=== PATIENT | female | born 1965 | race Caucasian/White ===

== ENCOUNTER 2016-06-21 12:41 | Emergency (ER) | payer MEDICAID, OTHER ==
--- NOTE | 2016-06-21 12:45 | EDPHY ---
H & P HPI/ROS: CHIEF COMPLAINT: Fatigue. HISTORY OF PRESENT ILLNESS: The patient is a 50-year-old female with a history Afib/flutter with Pacemaker and transposition of the great vessels s/p who presents via EMS with fatigue. She underwent Mustard procedure at age 1 and 1/2 and balloon angioplasty of baffle stenosis in 1999. She reports that she was walking outside earlier today when she suddenly felt dizzy. She sat down on the ground and EMS was notified. On presentation she feels fatigued but has no other complaints. She denies chest pain, shortness of breath, fever, recent sickness, vomiting, diarrhea. Her pacemaker was last checked two weeks ago. She was cardioverted in February [address] Ramires. REVIEW OF SYSTEMS: A ten point review of systems was performed and is negative with the exception of the items mentioned in the HPI. Source: Patient Exam Limitations: No limitations - Medical/Surgical History Hx Asthma: No Hx Chronic Respiratory Disease: No Hx Diabetes: No Hx Cardiac Disease: Yes Hx Renal Disease: No Hx Cirrhosis: No Hx Alcoholism: No Hx HIV/AIDS: No Hx Splenectomy or Spleen Trauma: No Other PMH: Transposition of the great vessels. Pacemaker - Social History Smoking Status: Never smoked Alcohol Use: None Additional Social History: Nonsmoker. She is . - Physical Exam Exam: General Appearance: Alert. Vital signs reviewed. Heart rate 116. Eyes: Pupils equal and round, no conjunctival injection, no discharge. Anicteric. ENT, Mouth: Mucous membranes are moist, no oropharyngeal erythema or edema. Neck: No lymphadenopathy, supple. Respiratory: Lungs are clear to auscultation; no wheezes, rales, or rhonchi. Cardiovascular: Tachycardic. Murmur, rub, or gallop. Gastrointestinal: Abdomen is soft and nontender, no masses or organomegaly, bowel sounds normal. Skin: Warm and dry, no rashes on exposed skin, normal color. Back: Nontender to palpation over the thoracolumbar spine. No CVAT. Extremities: No lower extremity edema, no calf tenderness or swelling. Neurological: Alert and oriented. Moving all four extremities easily and equally. Psychiatric: Normal affect. Constitutional: Initial Vital Signs Temperature (C) 36.7 C 06/21/16 12:41 Heart Rate 115 H 06/21/16 12:41 Respiratory Rate 16 06/21/16 12:41 Blood Pressure 102/77 06/21/16 12:41 O2 Sat (%) 95 06/21/16 12:41 O2 Delivery Mode Room Air Allergies/Adverse Reactions: No Known Allergies Allergy (Unverified 08/29/11 10:27) Home Medications: Medication Instructions Recorded Aspirin [Aspirin 81mg (*)] 81 mg PO DAILY 06/22/16 Metoprolol Tartrate [Lopressor 25 25 mg PO BID #60 tab 06/23/16 mg (*)] Medical Decision Making - Diagnostics EKG Interpretation: The 12 lead EKG was interpreted by myself. See hard copy and/or "tracemaster" electronic copy for interpretation. Sinus tachycardia. VPC, right bundle branch block. ED Course/Re-evaluation: 50-year-old female with an extensive cardiac history including transposition of the great vessels and Pacemaker presents after an episode of dizziness just prior to arrival. On presentation she is fatigued but without chest pain or shortness of breath. An IV was established and labs ordered. EKG, chest x-ray obtained. I independently reviewed the patient's chest x-ray in the PACS system. My interpretation: no acute cardiopulmonary disease. Pacemaker wires intact. 1408: Reassessed patient. 1419: Consulted with Dr. Clements, cardiology. He is familiar with her. We reviewed previous blood pressure readings. Latest blood pressure here was 98/ 79. He would like her to stop taking her lisinopril. 1 week ago she stopped taking Multaq; he does not want her to resume that medication. 1435: Reassessed patient. HR around 110, sinus, paced. She does not feel lightheaded. Discussed the plan with her. She is comfortable being discharged. Differential Diagnosis: Chest pain including but not limited to myocardial ischemia, pulmonary embolus, chest wall pain, pleural inflammation and pulmonary infectious causes. Syncope including but not limited to vasovagal syncope, arrhythmia, dehydration , and blood loss. - Data Points Laboratory Results: Laboratory Results 06/21/16 Unknown 06/21/16 13:16 Departure - Departure Disposition: Home, Routine, Self-Care Clinical Impression: Tachycardia Atrial fibrillation Qualifiers: Atrial fibrillation type: unspecified Qualified Code(s): I48.91 - Unspecified atrial fibrillation Condition: Good Instructions: A-fib (Atrial Fibrillation) (ED), Tachycardia (ED) Additional Instructions: Discontinue use of your Lisinopril. Keep your appointment on Friday in [place] as scheduled. Return for any serious worsening of condition. Referrals: Kwabena Clements MD [Medical Doctor] - As per Instructions (Cardiology. ) Report Scribed for: Caryl Guillory Report Scribed by: David Flowers Date of Report: 06/21/16 Time of Report: 12:51 Physician Review and Approval Statement: 06/21/16 12:44 Portions of this note were transcribed by the medical pathology teacher. I, Dr. Caryl Guillory, personally performed the history, physical exam, and medical decision- making; and confirmed the accuracy of the information in the transcribed note.
--- NOTE | 2016-06-21 12:56 | CPEKG ---
Heart Rate: 116 RR Interval: 517 P-R Interval: 82 QRSD Interval: 150 QT Interval: 408 QTC Interval: 567 P [place]: 0 QRS [place]: -166 T Wave [place]: 19 EKG Severity - ABNORMAL ECG - EKG Impression: SINUS TACHYCARDIA EKG Impression: VENTRICULAR PREMATURE COMPLEX EKG Impression: RIGHT BUNDLE BRANCH BLOCK Electronically Signed By: Caryl Guillory 21-Jun-2016 13:19:42
[2016-06-21 13:20] LABS: % IMMATURE GRANULYOCYTES 0.5 % (0.0-1.1); ABSOLUTE IMMATURE GRANULOCYTES 0.04 10^3/uL (0.00-0.10); ADD DIFF? NO; ADD MORPH? NO; ADD SCAN? NO; ATYPICAL LYMPHOCYTE FLAG 10 (0-99); FRAGMENT RBC FLAG 0 (0-99); HEMOGLOBIN 13.8 g/dL (12.6-16.3); LEFT SHIFT FLG 0 (0-99); LIPEMIA HEMOLYSIS FLAG 80 (0-99); MEAN CELL HEMOGLOBIN 30.6 pg (27.9-34.1); MEAN CELL HEMOGLOBIN CONCENTR. 32.9 g/dL (32.4-36.7); MEAN CELL VOLUME 93.1 fL (81.5-99.8); MEAN PLATELET VOLUME 11.5 fL (8.7-11.7); PLATELET CLUMPS FLAG 10 (0-99); PLATELET COUNT 274 10^3/uL (150-400); RED BLOOD CELL COUNT 4.51 10^6/uL (4.18-5.33); RED CELL DISTRIBUTION WIDTH 12.7 % (11.5-15.2)
[2016-06-21 13:25] LABS: ANION GAP 12 mEq/L (8-16); CALCIUM 9.9 mg/dL (8.5-10.4); CARBON DIOXIDE 26 mEq/l (22-31); CHLORIDE 103 mEq/L (97-110); CREATININE 0.9 mg/dL (0.6-1.0); GLOMERULAR FILTRATION RATE > 60; GLUCOSE 117 mg/dL (70-100); POTASSIUM 4.5 mEq/L (3.5-5.2); SODIUM 141 mEq/L (134-144)
[2016-06-21 13:40] LABS: TROPONIN I < 0.012 ng/mL (0-0.034)
[2016-06-21 15:00] VITALS: BP 96/68; PULSE 110; RESP 14; TEMP 98.2; O2SAT 100
== END 2016-06-21 14:59 | disposition home or self-care (01) ==
LOC: EDUNIT#
DX: I48.91 Unspecified atrial fibrillation (principal); Z79.82 Long term (current) use of aspirin; Z95.0 Presence of cardiac pacemaker

== ENCOUNTER 2016-06-22 14:06 | Observation (INO) | payer OTHER ==
--- NOTE | 2016-06-22 14:25 | EDPHY ---
H & P Time Seen by Provider: 06/22/16 14:11 HPI/ROS: CHIEF COMPLAINT: Palpitations, fatigue HISTORY OF PRESENT ILLNESS: Patient is a 48-year-old female with a history of transposition of the great vessels and atrial fibrillation with pacemaker who presents to the emergency department with fatigue and palpitations. She was seen in the emergency department yesterday for similar symptoms. Her symptoms started yesterday. She had intermittent episodes of dizziness. In the emergency department she had an evaluation was ultimately sent home. She was told to discontinue her lisinopril due to mild hypertension. Patient states that she recently stopped taking Multaq. Yesterday, Dr. Guillory consulted with Dr. Yenug all other did not want the Multaq restarted. Patient previously took Pradaxa but discontinued it 2 months ago. Patient has no chest pain. No abdominal pain. No nausea or vomiting. REVIEW OF SYSTEMS: My complete review of systems is negative except as mentioned in the HPI. Past Medical/Surgical History: Includes transposition of great vessels, atrial fib [place] Past surgical history: Includes transposition repair, pacemaker placement Social history: The patient is . She does not smoke or use drugs. She denies alcohol use. Smoking Status: Never smoked Physical Exam: Vitals noted. Heart rate 117 GENERAL: Well-appearing, in no acute distress, alert. HEENT: Eyes normal to inspection, normal pharynx, no signs of dehydration. NECK: No thyromegaly, no lymphadenopathy, supple. RESPIRATORY: Clear to auscultation bilaterally, no rales, rhonchi or wheezing. Chest wall: Large sternotomy scar. CVS: Tachycardia with regular rhythm, no rubs, murmurs, or gallops. ABDOMEN: Soft, nontender, nondistended, no organomegaly. BACK: Normal to inspection, no CVA tenderness. SKIN: Normal color, no rash, warm, dry. No pallor. EXTREMITIES: No pedal edema, no calf tenderness, no Homans sign or cords, no joint swelling. NEURO/PSYCH: Alert and oriented, normal mood and affect, normal motor sensory exam. Constitutional: Initial Vital Signs Temperature (C) 36.5 C 06/22/16 14:06 Heart Rate 119 H 06/22/16 14:06 Respiratory Rate 18 06/22/16 14:06 Blood Pressure 109/69 06/22/16 14:06 O2 Sat (%) 98 06/22/16 14:06 O2 Delivery Mode Room Air Allergies/Adverse Reactions: No Known Allergies Allergy (Unverified 08/29/11 10:27) Home Medications: Medication Instructions Recorded Lisinopril [Zestril 2.5 mg (RX)] 2.5 mg PO DAILY 08/29/11 Metoprolol Succinate 25 mg PO 08/29/11 Aspirin 02/14/16 Multaq 400 mg (*) 02/14/16 Pradaxa 02/14/16 Medical Decision Making ED Course/Re-evaluation: I met EMS on arrival in took report from the dinkey engine firer. In the emergency department I discussed possible etiologies with the patient. Laboratory studies and EKG were obtained. I reviewed the record from yesterday. EKG: Atrial fibrillation at 1:05 a.m.. Right bundle branch block. Patient has ST depression V2 through V 4. I compared this with an EKG from yesterday. Of note there was no ST depression or flipped T-waves Patient's troponin was normal. Her laboratory studies were unremarkable. Based on her abnormal EKG and tachycardia I paged the hospitalist service. I discussed the case with Dr. Deras. He will admit the patient for further observation and treatment. I discussed the plan with the patient and answered all her questions. Differential Diagnosis: My differential includes but is not limited to atrial fibrillation, tachycardia , dysrhythmia, ACS, acute OR, electrolyte abnormality, sugar abnormality, dehydration, ACS, acute OR, dissection, aneurysm, PE - Data Points Laboratory Results: Laboratory Results 06/22/16 14:13 06/22/16 14:13 06/22/16 06/22/16 06/22/16 14:13 14:13 14:13 WBC 7.07 10^3/uL 10^3/uL (3.80-9.50) RBC 4.41 10^6/uL 10^6/uL (4.18-5.33) Hgb 13.2 g/dL g/dL (12.6-16.3) Hct 40.6 % % (38.0-47.0) MCV 92.1 fL fL (81.5-99.8) MCH 29.9 pg pg (27.9-34.1) MCHC 32.5 g/dL g/dL (32.4-36.7) RDW 12.7 % % (11.5-15.2) Plt Count 263 10^3/uL 10^3/uL (150-400) MPV 11.4 fL fL (8.7-11.7) Neut % (Auto) 58.1 % % (39.3-74.2) Lymph % (Auto) 33.7 % % (15.0-45.0) [place] % (Auto) 6.4 % % (4.5-13.0) Eos % (Auto) 1.1 % % (0.6-7.6) Baso % (Auto) 0.6 % % (0.3-1.7) Nucleat RBC Rel Count 0.0 % % (0.0-0.2) Absolute Neuts (auto) 4.11 10^3/uL 10^3/uL (1.70-6.50) Absolute Lymphs (auto) 2.38 10^3/uL 10^3/uL (1.00-3.00) Absolute Monos (auto) 0.45 10^3/uL 10^3/uL (0.30-0.80) Absolute Eos (auto) 0.08 10^3/uL 10^3/uL (0.03-0.40) Absolute Basos (auto) 0.04 10^3/uL 10^3/uL (0.02-0.10) Absolute Nucleated RBC 0.00 10^3/uL 10^3/uL (0-0.01) Immature Gran % 0.1 % % (0.0-1.1) Immature Gran # 0.01 10^3/uL 10^3/uL (0.00-0.10) PT 12.7 SEC SEC (12.0-15.0) INR 0.96 (0.83-1.16) APTT 27.3 SEC SEC (23.0-38.0) Sodium 144 mEq/L mEq/L (134-144) Potassium 4.2 mEq/L mEq/L (3.5-5.2) Chloride 105 mEq/L mEq/L (97-110) Carbon Dioxide 27 mEq/l mEq/l (22-31) Anion Gap 12 mEq/L mEq/L (8-16) BUN 12 mg/dL mg/dL (7-23) Creatinine 0.8 mg/dL mg/dL (0.6-1.0) Estimated GFR > 60 Glucose 73 mg/dL mg/dL (70-100) Calcium 9.6 mg/dL mg/dL (8.5-10.4) Troponin I < 0.012 ng/mL ng/mL (0-0.034) Departure - Departure Disposition: [facility] Acute Clinical Impression: Abnormal EKG Atrial fibrillation Qualifiers: Atrial fibrillation type: unspecified Qualified Code(s): I48.91 - Unspecified atrial fibrillation Condition: Good Referrals: Patient,NotPresent [Unknown] - As per Instructions
--- NOTE | 2016-06-22 14:26 | CPEKG ---
Heart Rate: 102 RR Interval: 588 QRSD Interval: 134 QT Interval: 384 QTC Interval: 501 QRS [place]: -157 T Wave [place]: 25 EKG Severity - ABNORMAL ECG - EKG Impression: ATRIAL FLUTTER, A-RATE 238 EKG Impression: RIGHT BUNDLE BRANCH BLOCK Electronically Signed By: Zoë Macedo 22-Jun-2016 20:05:46
[2016-06-22 14:48] LABS: % IMMATURE GRANULYOCYTES 0.1 % (0.0-1.1); ABSOLUTE IMMATURE GRANULOCYTES 0.01 10^3/uL (0.00-0.10); ADD DIFF? NO; ADD MORPH? NO; ADD SCAN? NO; ATYPICAL LYMPHOCYTE FLAG 10 (0-99); FRAGMENT RBC FLAG 0 (0-99); HEMATOCRIT 40.6 % (38.0-47.0); HEMOGLOBIN 13.2 g/dL (12.6-16.3); LEFT SHIFT FLG 0 (0-99); LIPEMIA HEMOLYSIS FLAG 80 (0-99); MEAN CELL HEMOGLOBIN 29.9 pg (27.9-34.1); MEAN CELL HEMOGLOBIN CONCENTR. 32.5 g/dL (32.4-36.7); MEAN CELL VOLUME 92.1 fL (81.5-99.8); MEAN PLATELET VOLUME 11.4 fL (8.7-11.7); PLATELET CLUMPS FLAG 0 (0-99); PLATELET COUNT 263 10^3/uL (150-400); RED BLOOD CELL COUNT 4.41 10^6/uL (4.18-5.33); RED CELL DISTRIBUTION WIDTH 12.7 % (11.5-15.2)
[2016-06-22 14:53] LABS: ANION GAP 12 mEq/L (8-16); CALCIUM 9.6 mg/dL (8.5-10.4); CARBON DIOXIDE 27 mEq/l (22-31); CHLORIDE 105 mEq/L (97-110); CREATININE 0.8 mg/dL (0.6-1.0); GLOMERULAR FILTRATION RATE > 60; GLUCOSE 73 mg/dL (70-100); POTASSIUM 4.2 mEq/L (3.5-5.2); SODIUM 144 mEq/L (134-144)
[2016-06-22 15:02] LABS: APTT 27.3 SEC (23.0-38.0); INR 0.96 (0.83-1.16); PROTIME(PATIENT) 12.7 SEC (12.0-15.0)
[2016-06-22 15:05] LABS: TROPONIN I < 0.012 ng/mL (0-0.034)
[2016-06-22] MEDS ORDERED: ONDANSETRON 4 MG/2 ML VIAL IVP PRN (16:52)
[2016-06-22] MEDS ORDERED: ACETAMINOPHEN 325 MG TAB PO PRN (16:52)
[2016-06-22] MEDS ORDERED: ONDANSETRON DISINTEGRATING 4 MG TAB PO PRN (16:52)
[2016-06-22] MEDS ORDERED: METOPROLOL TARTRATE 25 MG TAB PO ONE (16:57)
--- NOTE | 2016-06-22 17:03 | PDGENHP ---
History and Physical - Chief Complaint Acute lightheadedness - History of Present Illness Primary hardwood sawyer: Dr. Clements HPI: 50-year-old female presenting with acute lightheadedness characterized as dizziness, exacerbated with ambulation and standing, associated with generalized weakness and fatigue, onset of symptoms on the day prior to this presentation and duration has been persistent thereafter. Of note, the patient' s heart rate has been between 110 and 120, and she normally has a heart rate in the 60-70 range. Specifically, she discontinue Multaq approximately 1-2 weeks ago and has not had any dose up titration is on her metoprolol succinate. She does report that she experienced a thumping sensation in her chest several times over the past couple days. She otherwise denies any significant fevers, chills, sore throat, shortness of breath, does endorse a chronic intermittent nonproductive cough. 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 Atrial flutter and atrial fibrillation with DC cardioversion in February of 2016, placed on Multaq and metoprolol, Multaq discontinued recently. Asystole in 1999 with sick sinus syndrome and permanent pacemaker placed. Hypertension. Developmental delay - Surgical History Additional surgical history: Atrial septostomy, mustard procedure at age to. Permanent pacemaker placement - Family History Additional family history: No recent sick family contacts - Social History Smoking Status: Never smoked Alcohol Use: None Additional social history: Normally independent in her ADLs, lives with Review of Systems ROS: 10pt was reviewed & negative except for what was stated in HPI & below Constitutional: Reports: weakness Cardiac: Reports: chest pain, lightheadedness Physical Exam Temp Pulse Resp BP Pulse Ox 36.5 C 116 H 18 109/68 94 06/22/16 14:06 06/22/16 16:37 06/22/16 16:37 06/22/16 16:37 06/22/16 16:37 Constitutional: no apparent distress, appears nourished, not in pain Eyes: PERRL, anicteric sclera, EOMI Ears, Nose, Mouth, Throat: moist mucous membranes, hearing normal, ears appear normal, no oral mucosal ulcers Cardiovascular: irregularly irregular, tachycardia, No systolic murmur, No edema Respiratory: no respiratory distress, no rales or rhonchi, clear to auscultation Gastrointestinal: normoactive bowel sounds, soft, non-tender abdomen, no palpable masses Genitourinary: no bladder fullness, no bladder tenderness Neurologic: AAOx3, sensation intact bilaterally, CN II-XII Intact, No weakness ( Motor strength 5/5 bilateral upper and lower extremity) Psychiatric: interacting appropriately, not anxious, not encephalopathic, thought process linear Lab Data & Imaging Review 06/22/16 14:13 06/22/16 14:13 WBC 7.07 10^3/uL (3.80-9.50) 06/22/16 14:13 RBC 4.41 10^6/uL (4.18-5.33) 06/22/16 14:13 Hgb 13.2 g/dL (12.6-16.3) 06/22/16 14:13 Hct 40.6 % (38.0-47.0) 06/22/16 14:13 MCV 92.1 fL (81.5-99.8) 06/22/16 14:13 MCH 29.9 pg (27.9-34.1) 06/22/16 14:13 MCHC 32.5 g/dL (32.4-36.7) 06/22/16 14:13 RDW 12.7 % (11.5-15.2) 06/22/16 14:13 Plt Count 263 10^3/uL (150-400) 06/22/16 14:13 MPV 11.4 fL (8.7-11.7) 06/22/16 14:13 Neut % (Auto) 58.1 % (39.3-74.2) 06/22/16 14:13 Lymph % (Auto) 33.7 % (15.0-45.0) 06/22/16 14:13 [place] % (Auto) 6.4 % (4.5-13.0) 06/22/16 14:13 Eos % (Auto) 1.1 % (0.6-7.6) 06/22/16 14:13 Baso % (Auto) 0.6 % (0.3-1.7) 06/22/16 14:13 Nucleat RBC Rel Count 0.0 % (0.0-0.2) 06/22/16 14:13 Absolute Neuts (auto) 4.11 10^3/uL (1.70-6.50) 06/22/16 14:13 Absolute Lymphs (auto) 2.38 10^3/uL (1.00-3.00) 06/22/16 14:13 Absolute Monos (auto) 0.45 10^3/uL (0.30-0.80) 06/22/16 14:13 Absolute Eos (auto) 0.08 10^3/uL (0.03-0.40) 06/22/16 14:13 Absolute Basos (auto) 0.04 10^3/uL (0.02-0.10) 06/22/16 14:13 Absolute Nucleated RBC 0.00 10^3/uL (0-0.01) 06/22/16 14:13 Immature Gran % 0.1 % (0.0-1.1) 06/22/16 14:13 Immature Gran # 0.01 10^3/uL (0.00-0.10) 06/22/16 14:13 PT 12.7 SEC (12.0-15.0) 06/22/16 14:13 INR 0.96 (0.83-1.16) 06/22/16 14:13 APTT 27.3 SEC (23.0-38.0) 06/22/16 14:13 Sodium 144 mEq/L (134-144) 06/22/16 14:13 Potassium 4.2 mEq/L (3.5-5.2) 06/22/16 14:13 Chloride 105 mEq/L (97-110) 06/22/16 14:13 Carbon Dioxide 27 mEq/l (22-31) 06/22/16 14:13 Anion Gap 12 mEq/L (8-16) 06/22/16 14:13 BUN 12 mg/dL (7-23) 06/22/16 14:13 Creatinine 0.8 mg/dL (0.6-1.0) 06/22/16 14:13 Estimated GFR > 60 06/22/16 14:13 Glucose 73 mg/dL (70-100) 06/22/16 14:13 Calcium 9.6 mg/dL (8.5-10.4) 06/22/16 14:13 Troponin I < 0.012 ng/mL (0-0.034) 06/22/16 14:13 Visualized and Interpreted Chest x-ray results: Yes Chest X-Ray results: other (Mild peribronchial thickening, no focal airspace disease) Visualized and Interpreted EKG results: Yes EKG Interpretation: Positive for: other (Atrial fibrillation with rapid ventricular response, ST depressions in leads V2 to V4, change from day prior) Assessment & Plan Assessment: 50-year-old female presenting with acute atrial fibrillation rapid ventricular response, symptomatic Plan: 1. Atrial fibrillation. Persistent, with rapid ventricular response, new problem this provider, further workup indicated. Most likely precipitant is recent discontinuation of her antiarrhythmic, but we will monitor her for ischemia given her ST depressions on EKG and also rule her out for venous thromboembolism given her large known ASD -reviewed outside records including 06/21/2016 emergency department report by Dr. Guillory, she reports that the patient presented with symptoms similar to today with a heart rate in the 118 range, advised to discontinue lisinopril and discharge home by Cardiology -monitor on telemetry -cycle cardiac enzymes -takes metoprolol succinate 25 mg nightly, increased to metoprolol tartrate 25 mg twice daily, 1st dose now -discussed with Dr. Penny in the emergency department, he reports to me that Cardiology has been consulted and will see the patient -get echocardiogram to evaluate structure -make NPO after midnight, possible DC cardioversion and YVONNE tomorrow -of note, the patient has a evaluation at [facility] for possible ablation on 06/24 2. Hypertension. Chronic, discontinuing lisinopril yesterday, monitoring for any hypotension which would necessitate more rapid cardioversion 3. Transposition of great vessels. Patient with large ASD and mildly reduced function of the left ventricle and right ventricle per transesophageal echocardiogram in February 2016 Diet. Regular, NPO after midnight prophylaxis. Low risk patient, SCDs Code. Full per patient, her is her MPOA Disposition. Anticipated discharge is 06/23/2016, pending further workup and stabilization of conditions outlined above.
[2016-06-22] MEDS ORDERED: METOPROLOL TARTRATE 25 MG TAB ONE (17:06)
[2016-06-22] MEDS: NS 1,000 ML IV SCH (19:13)
[2016-06-22] MEDS: METOPROLOL TARTRATE 25 MG TAB PO SCH (22:40)
[2016-06-22] MEDS: ENOXAPARIN 60 MG/0.6 ML SYR SC SCH (22:42)
[2016-06-23] MEDS: NS 1,000 ML IV SCH (01:31)
[2016-06-23 04:44] LABS: % IMMATURE GRANULYOCYTES 0.3 % (0.0-1.1); ABSOLUTE IMMATURE GRANULOCYTES 0.02 10^3/uL (0.00-0.10); ADD DIFF? NO; ADD MORPH? NO; ADD SCAN? NO; ATYPICAL LYMPHOCYTE FLAG 0 (0-99); FRAGMENT RBC FLAG 0 (0-99); HEMATOCRIT 35.6 % (38.0-47.0); HEMOGLOBIN 11.7 g/dL (12.6-16.3); LEFT SHIFT FLG 0 (0-99); LIPEMIA HEMOLYSIS FLAG 80 (0-99); MEAN CELL HEMOGLOBIN 30.4 pg (27.9-34.1); MEAN CELL HEMOGLOBIN CONCENTR. 32.9 g/dL (32.4-36.7); MEAN CELL VOLUME 92.5 fL (81.5-99.8); MEAN PLATELET VOLUME 11.1 fL (8.7-11.7); PLATELET CLUMPS FLAG 0 (0-99); PLATELET COUNT 197 10^3/uL (150-400); RED BLOOD CELL COUNT 3.85 10^6/uL (4.18-5.33); RED CELL DISTRIBUTION WIDTH 12.7 % (11.5-15.2)
[2016-06-23 05:00] LABS: ANION GAP 6 mEq/L (8-16); CALCIUM 8.9 mg/dL (8.5-10.4); CARBON DIOXIDE 25 mEq/l (22-31); CHLORIDE 111 mEq/L (97-110); CREATININE 0.9 mg/dL (0.6-1.0); GLOMERULAR FILTRATION RATE > 60; GLUCOSE 81 mg/dL (70-100); MAGNESIUM 1.9 mg/dL (1.6-2.3); POTASSIUM 4.5 mEq/L (3.5-5.2); SODIUM 142 mEq/L (134-144)
[2016-06-23 05:11] LABS: TROPONIN I < 0.012 ng/mL (0-0.034)
[2016-06-23] MEDS ORDERED: ASPIRIN 81 MG CHEWABLE TAB PO SCH (09:00)
[2016-06-23] MEDS: METOPROLOL TARTRATE 25 MG TAB PO SCH (09:44)
[2016-06-23] MEDS: ENOXAPARIN 60 MG/0.6 ML SYR SC SCH (09:44)
[2016-06-23 12:35] VITALS: BP 102/77; PULSE 119; RESP 19; TEMP 98.1; O2SAT 91
--- NOTE | 2016-06-23 12:37 | PDCARPN ---
Cardiology Progress Note Chief Complaint: Radha was admitted with Afib with RVR. She remains in rate controlled afib today. She has been off on anticoagulation since Mar 28, 2016 secondary to developement of retroperitoneal hematoma during right heart cath to assess baffle pressures. Of note, Mustard baffle pressure was acceptable and did not require balloon dilitation. She is scheduled to see Dr. Emir Levi tomorrow morning for consideration of AFib ablation. Radha is feeling well today. BP is stable off of Lisinopril. Rates controlled on Metoprolol Tartrate 25 mg bid. Assessment/Plan: Assessment: 1. Afib with RVR 2. Hx of transpostition sp Mustard procedure at age 1 3. SSS sp Pacemaker 4. Symptomatic Hypotension 5. Hx of retroperitoneal Hematoma on Mar 28, 2016 during heart cath to assess baffle pressure Plan: 1. Metoprolol Tartrate 25 mg bid 2. No Lisinopril 3. Aspirin 81 mg daily 4. Appt with Dr. Emir Levi at [facility] tomorrow morning to discuss Afib ablation 5. No anticoagulation in anticipation of pt having Afib ablation. I will talk with Dr. Levi tomorrow after Radha's appt. If afib ablation is not scheduled for next week, will restart Pradaxa 150 mg bid. 06/23/16 12:39 Reviewed/Discussed With: family, hospitalist Time Spent With Patient: 45 min Objective: Vital Signs (8 Hrs) Temp Pulse Resp BP Pulse Ox 06/23/16 09:44 95 108/72 06/23/16 07:29 36.7 C 72 11 L 108/72 93 Intake/Output (24 Hrs) 06/22/16 06/23/16 06/24/16 05:59 05:59 05:59 Intake Total 2300 Output Total 1300 Balance 1000 Intake: Oral (ml) 500 IV Infused (ml) 1800 Ns 1,000 ml @ 150 mls/hr 1800 IV CONT UZIEL Rx#: [id number] Output: Urine (ml) 1300 Toilet 1300 Other: Weight 58.967 kg Number of Voids Toilet 3 Number of Stools Toilet 1 Result Diagrams: 06/23/16 04:35 06/23/16 04:35 Cardiac Labs: Cardiac Lab Results (72 Hrs) 06/23/16 06/22/16 04:35 17:02 Troponin I < 0.012 < 0.012 - Physical Exam Constitutional: WDWN, healthy appearing Ears, Nose, Mouth, Throat: moist mucous membranes Cardiovascular: irregularly irregular Peripheral Pulses: 2+: carotid (R), carotid (L) Respiratory: clear to auscultate bilat Gastrointestinal: normoactive bowel sounds, no tenderness Skin: no rashes Neurologic: AAOx3, CN II-XII grossly intact Psychiatric: cooperative, interactive, following commands, not anxious ICD10 Worksheet Patient Problems: Problems Problem Status Onset Abnormal EKG Acute Atrial fibrillation Acute
--- NOTE | 2016-06-23 15:06 | GDS ---
[f rep st] DISCHARGE SUMMARY DISCHARGE DIAGNOSES: Include: 1. Atrial fibrillation with rapid ventricular response. 2. Transposition of the great vessels, status post Mustard procedure. 3. Permanent pacemaker placement. 4. Hypertension. 5. Developmental delay. HISTORY OF PRESENT ILLNESS: This is a 50-year-old female who presents on 06/22/2016 with complaints of lightheadedness and dizziness. For details of patient's initial presentation, please see the hi story and physical dated 06/22/2016. CONSULTATIVE SERVICES: Include Cardiology. PROCEDURES: None. HOSPITAL COURSE BY ISSUE: 1. Atrial fibrillation with rapid ventricular response. The patient has a complicated cardiac hist ory, including history of transposition of the great vessels and repair. Has been diagnosed in the past with atrial fibrillation. Has had permanent pacemaker placement and on chronic anticoagulation . The patient presented with rapid rates after being down titrated on her Multaq by her outpatient ceramics teacher. The patient was admitted, kept on telemetry monitoring, and treated with higher dose metoprolol with effective rate control. Heart rates are in the 80s the morning after presentation. The patient has scheduled anticipated electrophysiology evaluation to be done on 06/24 at [facility]. The patient was evaluated by Dr. Clements, and the decision was made not to cardiovert the patient out of atrial fibrillation but instead allow her to stay in the rhythm so the EP physicians evaluating her tomorrow can see the rhythm she is in currently. Additionally, Dr. Clements would like t he patient to not be sent out on any Lovenox or Pradaxa in preparation for her evaluation tomorrow a s well. The patient will be discharged on a double dose of metoprolol short-acting 25 mg b.i.d., ag ain, until this evaluation by EP tomorrow. 2. Hypertension. Patient's blood pressures were adequately controlled. MEDICATIONS: At the time of disposition, please reference medication reconciliation printed on 06/02. Of note, the patient is now on short-acting double dose metoprolol and no anticoagulants pe r request of Cardiology. FOLLOWUP APPOINTMENTS: Include with EP on 06/24/2016, as well as to be established new PCP with [facility]. Information was provided by Case Management. TIME SPENT: I spent greater than 30 minutes in the planning and coordination of this discharge. /[id number]/MODL
== END 2016-06-23 14:40 | disposition home or self-care (01) ==
LOC: EDUNIT# → UNDOADMOB 14:13 → F2W 18:34 → UNDODISOB 06-23 11:36
PROVIDERS: ADMIT Internal Medicine; ATTEND Hospitalist
DX: I48.91 Unspecified atrial fibrillation (principal); Z95.0 Presence of cardiac pacemaker; I10 Essential (primary) hypertension; R62.50 Unspecified lack of expected normal physiological development in childhood; Z79.01 Long term (current) use of anticoagulants; Z98.890 Other specified postprocedural states
CPT/HCPCS: 93005; 97165; G0378; G8987; G8988; J1650

== ENCOUNTER 2017-08-06 14:41 | Emergency (ER) | payer OTHER, MEDICAID ==
[2017-08-06] MEDS ORDERED: NS 500 ML IV ONE (15:17)
--- NOTE | 2017-08-06 15:19 | CPEKG ---
Heart Rate: 79 RR Interval: 759 P-R Interval: 216 QRSD Interval: 128 QT Interval: 436 QTC Interval: 500 QRS [place]: -160 T Wave [place]: 11 EKG Severity - ABNORMAL ECG - EKG Impression: ATRIAL-PACED RHYTHM EKG Impression: RIGHT BUNDLE BRANCH BLOCK Electronically Signed By: Lindsey Caro 06-Aug-2017 16:41:14
--- NOTE | 2017-08-06 15:26 | EDPHY ---
H & P Time Seen by Provider: 08/06/17 14:59 HPI/ROS: HPI Lightheaded. 51-year-old female by ambulance. This patient was at a restaurant eating. She received a cold glass of lemonade. She took a sip of the lemonade and had a sudden onset near syncopal event. She reports that she became lightheaded but did not fully lose consciousness. She was able here people and activity around her. Denies associated chest pain, no palpitations, no shortness of breath, no headache. No loss of sensation or weakness in her extremities. She reports feeling normal now. She has a significant cardiac history. Please see below. Her reports this happened to her in the past when she drinks something that is very cold. ROS: Constitutional: No fever, no chills. As above. Eyes: No discharge. No changes in vision. ENT: No sore throat. No nasal congestion or rhinorrhea. Respiratory: No cough. No shortness of breath. Cardiac: No chest pain, no palpitations. Gastrointestinal: No abdominal pain, no vomiting, no diarrhea. Genitourinary: No hematuria. No dysuria or increased frequency with urination. Musculoskeletal: No back pain. No neck pain. No myalgias or arthralgias. Skin: No rashes. Neurological: No headache. No focal weakness or altered sensation. 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 Currently on Pradaxa and metoprolol. Asystole in 1999 with diagnosis of sick sinus syndrome and placement of a permanent pacemaker. Hypertension. Developmental delay. Social history: Lives independently with her . Nonsmoker. No alcohol. Physical Exam: General Appearance: Alert, no distress. Mildly diaphoretic. This patient is responding to questions appropriately and in full sentences. This patient appears well-hydrated and well-nourished. Eyes: Pupils equal and round no pallor or injection. No lid edema, erythema or injection. ENT, Mouth: Mucous membranes are moist. The pharyngeal tissues are unremarkable. No edema or swelling. No asymmetry suggestive of abscess. No erythema or exudates. No tongue lacerations or abrasions. Respiratory: There are no retractions, lungs are clear to auscultation with good air movement bilaterally. Cardiovascular: Regular rate and rhythm. No murmur appreciated. Gastrointestinal: Abdomen is soft and nontender, no masses, bowel sounds normal. No focal tenderness at McBurney's point. No Bowen sign. Neurological: Motor sensory function is grossly intact. Cranial nerves are normal. Gait is normal. Skin: Warm and dry, no rashes. Musculoskeletal: Neck is supple and nontender. Extremities are symmetrical. All joints range without pain or impingement. Psychiatric: No agitation. No depression. Database: EKG: EKG time is 3:17 p.m.; EKG shows a atrial paced rhythm with underlying right bundle branch block ventricular rate of 79. QT interval is within normal limits. ST depressions noted in V2 and V3. EKG compared to prior EKGs from June of 2016 without significant change. Interpreted by me. Imaging: Procedures: Emergency department course: IV placed per EMS. At this time the patient is asymptomatic. Nursing staff reports she has been up and ambulatory with a normal gait to the bathroom. She will be given IV normal saline, 250 cc to 500 cc over the next hour. EKG obtained and reviewed by myself. Her certified court interpreter, Dr. Franky Clements was paged at 3:25 p.m.. 3:50 p.m., spoke with the patient's certified court interpreter Dr. Franky Clements. Case discussed in detail with him. He feels the patient is safe for discharge from the emergency department and he will see her on follow-up in his office. I am in agreement with this. 4:15 p.m., patient re-evaluated. Resting comfortably at this time. panel monitor shows a narrow complex atrial paced rhythm ventricular rate of 82. Pulse oximetry on room air is 90%. Blood pressure 100/64. Blood pressure is at baseline. I discussed my conversation with her certified court interpreter Dr. Clements. She does feel comfortable going home with her . She will call Dr. Clements office for a follow-up appointment tomorrow. I discussed the importance of her keeping well hydrated. I also discussed having her kidney function recheck when she is seen by Dr. Clements. She understands her follow-up. She feels comfortable being discharged with her . Return to emergency department precautions were thoroughly reviewed with the 2 of them. All of her questions were answered. The patient was discharged home in good condition. 4:50 p.m., Dr. Clements actually saw this patient briefly in the emergency department. He again feels comfortable with her going home. I am in agreement. Differential Diagnosis: The differential diagnosis on this patient includes but is not limited to vasovagal event. Acute coronary syndrome, arrhythmia, myocardial infarction, CVA, seizure unlikely. This represents a partial list of diagnoses considered. These considerations are based on history, physical exam, past history, reassessment and diagnostic testing. Smoking Status: Never smoked Constitutional: Initial Vital Signs Temperature (C) 36.5 C 08/06/17 15:07 Heart Rate 80 08/06/17 15:07 Respiratory Rate 16 08/06/17 15:07 Blood Pressure 104/68 08/06/17 15:07 O2 Sat (%) 94 08/06/17 15:07 O2 Delivery Mode Room Air Allergies/Adverse Reactions: No Known Allergies Allergy (Verified 08/06/17 14:57) Home Medications: Medication Instructions Recorded Aspirin [Aspirin 81mg (*)] 81 mg PO DAILY 06/22/16 Metoprolol Tartrate [Lopressor 25 25 mg PO BID #60 tab 06/23/16 mg (*)] Lisinopril 08/06/17 Medical Decision Making - Data Points Laboratory Results: 08/06/17 08/06/17 15:31 15:28 POC Hgb 13.3 gm/dL gm/dL (12.6-16.3) POC Hct 39 % % (38-47) POC Sodium 141 mEq/L mEq/L (135-145) POC Potassium 4.1 mEq/L mEq/L (3.3-5.0) POC Chloride 105 mEq/L mEq/L (97-110) POC BUN 12 mg/dL mg/dL (7-23) POC Creatinine 1.1 mg/dL H mg/dL (0.6-1.0) POC Glucose 120 mg/dL H mg/dL (70-100) POC Troponin I 0.01 ng/mL ng/mL (0.00-0.08) Medications Given: Discontinued Medications Sodium Chloride (Ns) 500 mls @ 1,000 mls/hr IV EDNOW ONE PRN Reason: Protocol Stop: 08/06/17 15:46 Last Admin: 08/06/17 15:29 Dose: 500 mls Point of Care Test Results: Chemistry 08/06/17 08/06/17 15:31 15:28 POC Sodium 141 mEq/L mEq/L (135-145) POC Potassium 4.1 mEq/L mEq/L (3.3-5.0) POC Chloride 105 mEq/L mEq/L (97-110) POC BUN 12 mg/dL mg/dL (7-23) POC Creatinine 1.1 mg/dL H mg/dL (0.6-1.0) POC Glucose 120 mg/dL H mg/dL (70-100) POC Troponin I 0.01 ng/mL ng/mL (0.00-0.08) ISTAT H&H 08/06/17 15:31 POC Hgb 13.3 gm/dL gm/dL (12.6-16.3) POC Hct 39 % % (38-47) Departure - Departure Disposition: Home, Routine, Self-Care Clinical Impression: Lightheaded Condition: Good Instructions: Near Syncope (ED) Additional Instructions: Read and follow provided instructions. Follow-up with your certified court interpreter, Dr. Franky Clements, in his office as discussed. Call tomorrow morning for appointment time. I spoke with him today. Keep yourself well hydrated. Have Dr. Clements recheck your kidney function during her follow-up visit. Take your medication as prescribed. Return to the emergency department for worsening symptoms, fainting, chest pain , difficulty breathing, or other serious concerns. Referrals: Kwabena Clements MD [Medical Doctor] - As per Instructions
[2017-08-06 16:33] VITALS: BP 100/64
== END 2017-08-06 16:30 | disposition home or self-care (01) ==
LOC: EDUNIT#
DX: R42 Dizziness and giddiness (principal); E86.9 Volume depletion, unspecified; I10 Essential (primary) hypertension; Z79.82 Long term (current) use of aspirin; Z95.0 Presence of cardiac pacemaker
CPT/HCPCS: 82435-PO; 82565-PO; 82947-PO; 84132-PO; 84295-PO; 84484-PO; 84520-PO; 85014-PO

== ENCOUNTER → 2017-09-17 | Outpatient (CLI) | payer OTHER, MEDICAID | LOC: BHFA 14:00 | PROVIDERS: ATTEND Internal Medicine Cardiovascular Disease | DX: Z98.890 Other specified postprocedural states (principal); I47.1 Supraventricular tachycardia; Z95.0 Presence of cardiac pacemaker ==

== ENCOUNTER → 2017-12-04 | Outpatient (CLI) | payer OTHER, MEDICAID | LOC: BHFA 14:00 | PROVIDERS: ATTEND Internal Medicine Cardiovascular Disease | DX: Q20.3 Discordant ventriculoarterial connection (principal) ==

== ENCOUNTER 2018-04-15 03:16 | Emergency (ER) | payer OTHER, MEDICAID ==
[2018-04-15] MEDS ORDERED: NS 1,000 ML IV ONE (03:25)
--- NOTE | 2018-04-15 03:29 | EDPHY ---
H & P Time Seen by Provider: 04/15/18 03:27 HPI/ROS: HPI CHIEF COMPLAINT: Nausea/vomiting after eating pizza. HISTORY OF PRESENT ILLNESS: This is a 52-year-old female she has a history of AFib, left chest pacemaker, transposition of the great vessels with surgical fixation, developmental delay, presents emergency room by EMS from her private residence after called 911 for vomiting. Patient states at 1:30 a.m. They ordered pizza was pepperoni and sauces shortly after eating that she developed nausea and vomiting. States she vomited 1 time. She also reports with vomiting she developed a frontal headache. She reports to me the headache is now resolved in gone. She denies any chest pain or shortness of breath. She states she is feeling better since arriving to the emergency room Upon arrival she is in no acute distress denies any complaints denies headache denies chest pain denies shortness of breath denies wanting to vomit. She is requesting get up so that she can go use the bathroom. Denies this being a thunderclap headache, not the worst headache of her life. Not global. No neck pain, no neck stiffness. Past Medical History: History of AFib with RVR, left chest pacemaker, transposition of the great vessels, developmental delay. Past Surgical History: Left chest pacemaker, transposition of the great vessels surgery Social History: Lives locally. Denies drugs alcohol tobacco. Family History: Noncontributory ROS REVIEW OF SYSTEMS: Somewhat limited due to patient's developmental delay. Awaiting her arrived to the ER. EMS arrived before her him. Exam Constitutional nontoxic no acute distress, smiling, laughing at times, triage nursing summary reviewed, vital signs reviewed, awake/alert. Eyes normal conjunctivae and sclera, EOMI, PERRLA. HENT normal inspection, atraumatic, moist mucus membranes, no epistaxis, neck supple/ no meningismus, no raccoon eyes. Respiratory clear to auscultation bilaterally, normal breath sounds, no respiratory distress, no wheezing. Cardiovascular chest wall his left chest pacemaker, midline incision down the chest wall, rate normal, regular rhythm, no murmur, no edema, distal pulses normal. Gastrointestinal soft, non-tender, no rebound, no guarding, normal bowel sounds, no distension, no pulsatile mass. Genitourinary no CVA tenderness. Musculoskeletal no midline vertebral tenderness, full range of motion, no calf swelling, no tenderness of extremities, no meningismus, good pulses, neurovascularly intact. Skin pink, warm, & dry, no rash, skin atraumatic. Neurologic normal neurological exam without any focal neuro deficit. awake, alert and oriented x 3, AAOx3, moves all 4 extremities equally, motor intact, sensory intact, CN II-XII intact, normal cerebellar, normal vision, normal speech. Psychiatric normal mood/affect. Heme/Lymph/Immune no lymphadenopathy. Differential Diagnosis: Includes but is not limited to in a particular order acute nausea vomiting, dehydration electrolyte disturbance, food-borne illness, intracranial bleed, subarachnoid hemorrhage Medical Decision Making: Plan for this patient IV establishment IV fluid bolus , she denies chest pain or shortness of breath denies headache, denies wanting to vomit. Will gently hydrate her check basic blood work and re-evaluate her. Will also need to speak with her make sure there is no other concerns. Re-evaluation: CT scan head without contrast faxed to me by direct Radiology at 4:24 a.m. No acute intracranial abnormality. EKG interpretation by me on record in [employer] system. Impression time of EKG 4:45 a.m., atrially paced rhythm with a nonspecific intraventricular conduction delay. No signs of acute ischemia on the paced rhythm. And appears very similar to previous EKG 06/22/2016 in morphology. 0530: here bedside long discussion with him. Reported that they ate pizza and then shortly after she stated she felt nauseous and vomited 1 time. This concerned him so he called 911. Patient re-evaluated 5:30 a.m.: Patient in no acute distress denies any complaints. Denies chest pain or shortness of breath denies headache. Is feeling well. Denies abdominal pain. IT Is possible that she vomited after pizza. I did reexamine her abdomen is soft nontender. She denies any chest pain or shortness of breath. The patient's EKG is stable from previous EKGs. She does not have any ongoing nausea Troponin is noted to be negative. CT scan head without contrast is unremarkable The patient received 1 L fluid here. Electrolytes are appropriate Urinalysis is normal Patient feeling much better. Patient and is agreeable for discharge home. I did discuss return precautions with the patient return emergency room if further vomiting, fever, not doing well. 0612: Re-examination at this time patient resting comfortably no acute distress. Ambulated well to the bathroom. She p.o. Challenge well without any vomiting. She is laughing and conversing with her at bedside she would like to go home. I discussed return precautions with her return emergency room if worsening vomiting, or not doing well she understands this Most likely cause of vomiting x1 is pizza. Return if worse she understands. Source: Patient, EMS Exam Limitations: Clinical condition, Physical impairment - Medical/Surgical History Hx Asthma: No Hx Chronic Respiratory Disease: No Hx Diabetes: No Hx Cardiac Disease: Yes Hx Renal Disease: No Hx Cirrhosis: No Hx Alcoholism: No Hx HIV/AIDS: No Hx Splenectomy or Spleen Trauma: No Other PMH: Transposition of the great vessels. Pacemaker - Social History Smoking Status: Never smoked Constitutional: Initial Vital Signs Temperature (C) 36.5 C 04/15/18 03:30 Heart Rate 76 04/15/18 03:30 Respiratory Rate 18 04/15/18 03:30 Blood Pressure 116/71 04/15/18 03:30 O2 Sat (%) 95 04/15/18 03:30 O2 Delivery Mode Room Air Allergies/Adverse Reactions: No Known Allergies Allergy (Verified 08/06/17 14:57) Home Medications: Medication Instructions Recorded Aspirin [Aspirin 81mg (*)] 81 mg PO DAILY 06/22/16 Metoprolol Tartrate [Lopressor 25 25 mg PO BID #60 tab 06/23/16 mg (*)] Lisinopril 08/06/17 Pradaxa 04/15/18 Medical Decision Making - Data Points Laboratory Results: Laboratory Results 04/15/18 03:40 04/15/18 03:40 04/15/18 04/15/18 04/15/18 03:43 03:40 03:40 WBC 10.41 10^3/uL H 10^3/uL (3.80-9.50) RBC 3.96 10^6/uL L 10^6/uL (4.18-5.33) Hgb 11.9 g/dL L g/dL (12.6-16.3) Hct 35.8 % L % (38.0-47.0) MCV 90.4 fL fL (81.5-99.8) MCH 30.1 pg pg (27.9-34.1) MCHC 33.2 g/dL g/dL (32.4-36.7) RDW 12.3 % % (11.5-15.2) Plt Count 263 10^3/uL 10^3/uL (150-400) MPV 11.2 fL fL (8.7-11.7) Neut % (Auto) 61.3 % % (39.3-74.2) Lymph % (Auto) 28.4 % % (15.0-45.0) Power % (Auto) 7.8 % % (4.5-13.0) Eos % (Auto) 1.5 % % (0.6-7.6) Baso % (Auto) 0.6 % % (0.3-1.7) Nucleat RBC Rel Count 0.0 % % (0.0-0.2) Absolute Neuts (auto) 6.38 10^3/uL 10^3/uL (1.70-6.50) Absolute Lymphs (auto) 2.96 10^3/uL 10^3/uL (1.00-3.00) Absolute Monos (auto) 0.81 10^3/uL H 10^3/uL (0.30-0.80) Absolute Eos (auto) 0.16 10^3/uL 10^3/uL (0.03-0.40) Absolute Basos (auto) 0.06 10^3/uL 10^3/uL (0.02-0.10) Absolute Nucleated RBC 0.00 10^3/uL 10^3/uL (0-0.01) Immature Gran % 0.4 % % (0.0-1.1) Immature Gran # 0.04 10^3/uL 10^3/uL (0.00-0.10) Sodium 135 mEq/L mEq/L (135-145) Potassium 3.9 mEq/L mEq/L (3.5-5.2) Chloride 104 mEq/L mEq/L (97-110) Carbon Dioxide 25 mEq/l mEq/l (22-31) Anion Gap 6 mEq/L mEq/L (6-14) BUN 15 mg/dL mg/dL (7-23) Creatinine 0.8 mg/dL mg/dL (0.6-1.0) Estimated GFR > 60 Glucose 86 mg/dL mg/dL (70-100) Calcium 8.7 mg/dL mg/dL (8.5-10.4) Total Bilirubin 0.5 mg/dL mg/dL (0.1-1.4) Conjugated Bilirubin 0.3 mg/dL mg/dL (0.0-0.5) Unconjugated Bilirubin 0.2 mg/dL mg/dL (0.0-1.1) AST 32 IU/L IU/L (14-46) ALT 23 IU/L IU/L (9-52) Alkaline Phosphatase 98 IU/L IU/L (38-126) POC Troponin I 0.00 ng/mL ng/mL (0.00-0.08) Total Protein 6.3 g/dL g/dL (6.3-8.2) Albumin 3.8 g/dL g/dL (3.5-5.0) Lipase 418 IU/L H IU/L (23-300) Urine Color Urine Appearance Urine pH Ur Specific [place] Urine Protein Urine Ketones Urine Blood Urine Nitrate Urine Bilirubin Urine Urobilinogen Ur Leukocyte Esterase Urine RBC Urine WBC Ur Epithelial Cells Urine Glucose 04/15/18 03:30 WBC RBC Hgb Hct MCV MCH MCHC RDW Plt Count MPV Neut % (Auto) Lymph % (Auto) Power % (Auto) Eos % (Auto) Baso % (Auto) Nucleat RBC Rel Count Absolute Neuts (auto) Absolute Lymphs (auto) Absolute Monos (auto) Absolute Eos (auto) Absolute Basos (auto) Absolute Nucleated RBC Immature Gran % Immature Gran # Sodium Potassium Chloride Carbon Dioxide Anion Gap BUN Creatinine Estimated GFR Glucose Calcium Total Bilirubin Conjugated Bilirubin Unconjugated Bilirubin AST ALT Alkaline Phosphatase POC Troponin I Total Protein Albumin Lipase Urine Color COLORLESS Urine Appearance CLEAR Urine pH 6.0 (5.0-7.5) Ur Specific [place] 1.001 L (1.002-1.030) Urine Protein NEGATIVE (NEGATIVE) Urine Ketones NEGATIVE (NEGATIVE) Urine Blood 1+ H (NEGATIVE) Urine Nitrate NEGATIVE (NEGATIVE) Urine Bilirubin NEGATIVE (NEGATIVE) Urine Urobilinogen NEGATIVE EU EU (0.2-1.0) Ur Leukocyte Esterase NEGATIVE (NEGATIVE) Urine RBC 1-3 /hpf /hpf (0-3) Urine WBC 1-3 /hpf /hpf (0-3) Ur Epithelial Cells NONE SEEN /lpf /lpf (NONE-1+) Urine Glucose NEGATIVE (NEGATIVE) Medications Given: Discontinued Medications Sodium Chloride (Ns) 1,000 mls @ 0 mls/hr IV EDNOW ONE; Wide Open PRN Reason: Protocol Stop: 04/15/18 03:26 Last Admin: 04/15/18 03:37 Dose: 1,000 mls Point of Care Test Results: Chemistry 04/15/18 03:43 POC Troponin I 0.00 ng/mL ng/mL (0.00-0.08) Departure - Departure Disposition: Home, Routine, Self-Care Clinical Impression: Vomiting Condition: Good Instructions: Acute Nausea and Vomiting (ED) Additional Instructions: 1. [place] diet over the next 24 hr 2. Return to the emergency room if worsening abdominal pain, fever, vomiting Referrals: Patient,NotPresent [Unknown] - As per Instructions
[2018-04-15 03:47] LABS: PLATELET COUNT 263 10^3/uL (150-400)
[2018-04-15 06:13] VITALS: BP 116/70
--- NOTE | 2018-04-18 07:34 | CPEKG ---
Test Reason : OPEN Blood Pressure : / mmHG Vent. Rate : 079 BPM Atrial Rate : 078 BPM P-R Int : 227 ms QRS Dur : 145 ms QT Int : 476 ms P-R-T Axes : 078 181 013 degrees QTc Int : 546 ms Atrial-paced rhythm Nonspecific intraventricular conduction delay Confirmed by Edmond Jameson ([id number]) on 04/18/2018 7:33:26 AM Referred By: Edmond Jameson Confirmed By:Edmond Jameson
== END 2018-04-15 06:41 | disposition home or self-care (01) ==
LOC: EDUNIT#
DX: R11.2 Nausea with vomiting, unspecified (principal); E86.9 Volume depletion, unspecified; Z95.0 Presence of cardiac pacemaker
CPT/HCPCS: 84484-ER